=== PATIENT | male | born 1970 | race Two or more races ===

== ENCOUNTER 2017-03-23 17:30 | Inpatient (IN) | payer OTHER ==
[~2017-03-23] VITALS: Ht 175.3 cm; Wt 81.6 kg
[2017-03-23] MEDS ORDERED: Cefepime HCl 2 GM in D5W 55 ML IVPB ONE (18:00)
[2017-03-23] MEDS ORDERED: Vancomycin 1.5gm/D5W 250ml 250 ML IVPB ONE (18:00)
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
[2017-03-23] MEDS ORDERED: Cefepime 2gm ONE (18:17)
[2017-03-23 18:30] LABS: BASOPHILS % (AUTO) 0.7 % (0.0-2.0); EOSINOPHILS % (AUTO) 1.6 % (0.0-3.0); MEAN CORPUSCULAR HEMOGLOBIN 29.9 PG (27.0-31.0); MEAN CORPUSCULAR HGB CONC 33.6 G/DL (32.0-36.0); MEAN CORPUSCULAR VOLUME 89 FL (80-99); MEAN PLATELET VOLUME 8.2 FL (6.5-10.1); NEUTROPHILS % (AUTO) 62.7 % (45.0-75.0); PLATELET COUNT 195 K/UL (150-450); RED BLOOD COUNT 3.41 M/UL (4.70-6.10); RED CELL DISTRIBUTION WIDTH 13.1 % (11.6-14.8); WHITE BLOOD COUNT 6.3 K/UL (4.8-10.8)
[2017-03-23 18:40] LABS: ANION GAP 12 mmol/L (5-15); CARBON DIOXIDE 24 MMOL/L (21-32); CHLORIDE 102 MMOL/L (98-107); CREATININE 1.1 MG/DL (0.55-1.30); GLOMERULAR FILTRATION RATE > 60 mL/min (>60); POTASSIUM 4.2 MMOL/L (3.5-5.1); SODIUM 138 MMOL/L (136-145)
[2017-03-23 18:45] LABS: ALANINE AMINOTRANSFERASE 24 U/L (12-78); ASPARTATE AMINO TRANSFERASE 19 U/L (15-37); TOTAL PROTEIN 7.8 G/DL (6.4-8.2)
[2017-03-23 19:56] LABS: APPEARANCE,URINE CLEAR; KETONES,URINE NEGATIVE (NEGATIVE); LEUKOCYTE ESTERASE ,URINE 1+ (NEGATIVE); NITRITE,URINE NEGATIVE (NEGATIVE); PH,URINE 6.5 (4.5-8.0); PROTEIN,URINE NEGATIVE (NEGATIVE); UROBILINOGEN,URINE NORMAL MG/DL (0.0-1.0)
[2017-03-23 20:18] LABS: RBC,URINE 0-2 /HPF (0 - 0)
[2017-03-23 20:19] LABS: AMORPHOUS SEDIMENT,UR MODERATE /LPF; BACTERIA,URINE FEW /HPF
[2017-03-23] MEDS ORDERED: Cefepime HCl 2 GM in D5W 55 ML IVPB SCH (23:00)
[2017-03-23] MEDS ORDERED: Morphine Sulfate 2mg/ml Inj IVP PRN (23:00)
[2017-03-23 23:37] VITALS: BP 145/86
[2017-03-24] MEDS ORDERED: Cefepime 2gm ONE (03:46)
[2017-03-24 03:53] VITALS: BP 117/67
[2017-03-24] MEDS: Cefepime HCl 2 GM in D5W 55 ML IVPB SCH ×2 (04:29→19:37)
[2017-03-24] MEDS: Vancomycin 1250mg/D5W 250ml IVPB SCH ×2 (05:52→19:42)
[2017-03-24] MEDS: Norco 5mg/325mg tab ORAL PRN (06:01)
[2017-03-24 07:57] LABS: ALANINE AMINOTRANSFERASE 18 U/L (12-78); ALBUMIN/GLOBULIN RATIO 0.9 (1.0-2.7); ANION GAP 7 mmol/L (5-15); ASPARTATE AMINO TRANSFERASE 14 U/L (15-37); CALCIUM 8.9 MG/DL (8.5-10.1); CARBON DIOXIDE 27 MMOL/L (21-32); CHLORIDE 105 MMOL/L (98-107); CRP QUANT 0.5 mg/dL (0.00-0.90); GLOMERULAR FILTRATION RATE > 60 mL/min (>60); POTASSIUM 4.1 MMOL/L (3.5-5.1); SODIUM 139 MMOL/L (136-145); TOTAL PROTEIN 6.8 G/DL (6.4-8.2)
[2017-03-24 07:59] LABS: BASOPHILS % (AUTO) 0.7 % (0.0-2.0); EOSINOPHILS % (AUTO) 2.1 % (0.0-3.0); LYMPHOCYTES % (AUTO) 26.3 % (20.0-45.0); MEAN CORPUSCULAR HEMOGLOBIN 29.3 PG (27.0-31.0); MEAN CORPUSCULAR HGB CONC 32.8 G/DL (32.0-36.0); MEAN CORPUSCULAR VOLUME 89 FL (80-99); MEAN PLATELET VOLUME 8.2 FL (6.5-10.1); MONOCYTES % (AUTO) 6.9 % (1.0-10.0); PLATELET COUNT 219 K/UL (150-450); RED BLOOD COUNT 4.08 M/UL (4.70-6.10); RED CELL DISTRIBUTION WIDTH 13.2 % (11.6-14.8); WHITE BLOOD COUNT 6.6 K/UL (4.8-10.8)
[2017-03-24 08:15] VITALS: BP 131/88
[2017-03-24] MEDS ORDERED: Cefepime HCl 2 GM in D5W 55 ML IVPB SCH (09:00)
--- NOTE | 2017-03-24 10:14 | Diagnostic Imaging Report ---
Indication: PAIN, infection Technique: 2 views of the right tibia and fibula Comparison: none Findings: Medullary karma is seen extending through the tibia, reducing a well aligned fracture of the mid to distal diaphysis. Fracture line persists. There is also a fracture of the distal fibular diaphysis, which is displaced medially by just under one bone width. Skin prateek are seen the lateral aspect of the ankle and medial distal leg. The subcutaneous fat appears edematous. Impression: Fractures of the tibia and fibula, as described, with evidence of surgical reduction of the tibial fracture. Acuity indeterminate; uncertain as to whether the fractures are the original surgically repaired fractures or represent new fractures after surgery. Correlate with clinical history and compared to a prior outside images and may be available Edematous subcutaneous fat This agrees with the preliminary interpretation provided overnight by [facility] teleradiology service.
[2017-03-24] MEDS ORDERED: NS 500ML ONE (10:40)
[2017-03-24] MEDS ORDERED: Tubing IV Secondary IV ONE (10:40)
[2017-03-24 12:15] VITALS: BP 132/76
[2017-03-24 16:08] VITALS: BP 127/69
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
[2017-03-24 20:00] VITALS: BP 120/69
[2017-03-25] VITALS: BP 118/68
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
[2017-03-25 04:00] VITALS: BP 121/72
[2017-03-25] MEDS: Cefepime HCl 2 GM in D5W 55 ML IVPB SCH ×2 (05:03→17:51)
[2017-03-25] MEDS: Vancomycin 1250mg/D5W 250ml IVPB SCH (06:45)
[2017-03-25 08:00] VITALS: BP 126/76
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
[2017-03-25] MEDS: Morphine Sulfate 2mg/ml Inj IVP PRN ×2 (08:50→17:51)
[2017-03-25 12:00] VITALS: BP 143/79
--- NOTE | 2017-03-25 12:41 | Infectious Diseases Prog Note ---
"Assessment/Plan Assessment/Plan antibiotics : vancomycin iv, cefepime A 1. right leg cellulitis | wound infection with staph aureus 2. right tibia | fibula fracture s/p ORIF P 1. continue vancomycin iv, cefepime 2. will follow up cultures, CT scan Subjective Constitutional: Denies: fever, chills Respiratory: Denies: shortness of breath, dry cough Gastrointestinal/Abdominal: Denies: nausea, vomiting, diarrhea Musculoskeletal: Reports: pain Allergies: Coded Allergies: No Known Allergies (Unverified , 03/23/17) Objective Vital Signs Last 24 Hour Vital Signs Date Time Temp Pulse Resp B/P (MAP) Pulse Ox O2 Delivery O2 Flow Rate FiO2 03/25/17 08:00 97.0 72 20 126/76 96 03/25/17 04:00 98.2 68 18 121/72 99 Room Air 03/25/17 00:00 98.4 71 18 118/68 99 Room Air 03/24/17 20:00 99.6 73 18 120/69 98 Room Air 03/24/17 16:20 Room Air 03/24/17 16:08 97.3 78 22 127/69 97 Room Air Height (Feet): 5 Height (Inches): 9.00 Weight (Pounds): 180 Respiratory/Chest: lungs clear Cardiovascular: normal rate, regular rhythm, no gallop/murmur Abdomen: soft, non tender Extremities: no edema, other - right leg necrotic areas, erythema, swelling Microbiology Date/Time Source Procedure Growth Status 03/23/17 18:05 Blood Blood Culture - Preliminary NO GROWTH AFTER 24 HOURS Resulted 03/23/17 17:10 Blood Blood Culture - Preliminary NO GROWTH AFTER 24 HOURS Resulted 03/24/17 07:00 Hip Right Gram Stain - Final Resulted 03/24/17 07:00 Wound Culture - Preliminary Staphylococcus Aureus Resulted Laboratory Tests Test 03/25/17 06:15 Vancomycin Level Trough 10.3 ug/mL (5.0-12.0) JOEY BALTAZAR Mar 25, 2017 12:41"
[2017-03-25] MEDS: Vancomycin 1gm/D5W 275ml IVPB SCH ×4 (15:02→21:36)
[2017-03-25 16:15] VITALS: BP 126/77
--- NOTE | 2017-03-25 16:22 | Diagnostic Imaging Report ---
Indication: Infection, cellulitis, prior surgery Technique: No IV contrast, per referring physician request Spiral acquisitions obtained through the right tibia and fibula Multiplanar reconstructions were generated. Total dose length product 340 mGycm. CTDIvol(s) 5 mGy. Radiation dose was minimized using automated exposure control Comparison: Plain radiographs 03/24/2017 Findings: Surgical skin prateek are seen in the posterior dorsal lateral foot and lateral right ankle. Some of these are deep to the skin surface. There are nonspecific appearing polygonal high attenuation foci as well which measure approximately 5 mm in diameter. There is considerable infiltration of the subcutaneous fat in this region. There is also diffuse but less extensive edema of the subcutaneous fat of the leg. No definite discrete fluid collection demonstrated, but this is impossible to confidently excluded the absence of IV contrast. There is a medullary karma reducing a midshaft tibial fracture. This appears well aligned and the hardware appears intact. No osteolytic lesions are demonstrated. Hardware appears well aligned. There is a multipartite fracture of the mid to distal fibula. This has a central fragment and 2 distal fragments. The proximal fracture is minimally angulated, overrides by a few millimeters and is displaced anteriorly 5-7 mm. The distal fracture demonstrates only minimal if any angulation, is anteriorly displaced by about 5 mm. Impression: Postoperative changes, as described, status post ORIF of midshaft tibial fracture. Associated nonoperated fibular fracture, as described Extensive soft tissue edema, especially of the anterolateral ankle and hindfoot region. Given stated clinical history, most likely represent cellulitis. No definite underlying fluid collection. However, this is impossible to confidently exclude in the absence of IV contrast, and either repeat imaging with contrast or ultrasound should be considered. Multiple prateek are demonstrated in the region of the anterolateral ankle and hindfoot. Several these are deep to the skin surface. There are also ligament high attenuation foci in the same area, significance/etiology of which is uncertain. The CT scanner at [facility] is accredited by the [employer] and the scans are performed using protocols designed to limit radiation exposure to as low as reasonably achievable to attain images of sufficient resolution adequate for diagnostic evaluation.
--- NOTE | 2017-03-25 17:09 | Consultation ---
Consult Note Consult Note cx +staph- ID involved. CT done- no obvious signs of discrete fluid collection representing abscess Would recommend Abx regimen per ID. No need for sx at this time. per Ortho, ok for d/c once on abx regimen per ID. pt should f/u with outpt work comp CARLOS GAXIOLA Mar 25, 2017 17:09
[2017-03-25 20:00] VITALS: BP 123/79
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
[2017-03-26] VITALS (7 sets, daily range): BP systolic 115–138; BP diastolic 39–80
[2017-03-26] MEDS: Cefepime HCl 2 GM in D5W 55 ML IVPB SCH ×2 (05:19→17:11)
[2017-03-26] MEDS: Vancomycin 1gm/D5W 275ml IVPB SCH ×4 (06:00→14:29)
--- NOTE | 2017-03-26 11:18 | Infectious Diseases Prog Note ---
"Assessment/Plan Assessment/Plan antibiotics : vancomycin iv, cefepime A 1. right leg cellulitis | wound infection with staph aureus gram negative rods 2. right tibia | fibula fracture s/p ORIF P 1. continue vancomycin iv, cefepime 2. will follow up cultures Subjective Constitutional: Denies: fever, chills Respiratory: Denies: shortness of breath, dry cough Gastrointestinal/Abdominal: Denies: nausea, vomiting, diarrhea Musculoskeletal: Reports: pain Allergies: Coded Allergies: No Known Allergies (Unverified , 03/23/17) Objective Vital Signs Last 24 Hour Vital Signs Date Time Temp Pulse Resp B/P (MAP) Pulse Ox O2 Delivery O2 Flow Rate FiO2 03/26/17 08:00 96.3 76 18 138/80 98 Room Air 03/26/17 04:00 98.2 59 18 122/77 99 03/26/17 04:00 Room Air 03/26/17 00:00 97.5 71 21 117/39 98 03/25/17 20:00 97.3 80 21 123/79 100 03/25/17 16:15 98.2 69 22 126/77 99 Room Air 03/25/17 12:00 97.3 73 20 143/79 99 Height (Feet): 5 Height (Inches): 9.00 Weight (Pounds): 180 Respiratory/Chest: lungs clear Cardiovascular: normal rate, regular rhythm, no gallop/murmur Abdomen: soft, non tender Extremities: no edema, other - right leg in dressings Microbiology Date/Time Source Procedure Growth Status 03/23/17 18:05 Blood Blood Culture - Preliminary NO GROWTH AFTER 48 HOURS Resulted 03/23/17 17:10 Blood Blood Culture - Preliminary NO GROWTH AFTER 48 HOURS Resulted 03/24/17 07:00 Hip Right Gram Stain - Final Resulted 03/24/17 07:00 Wound Culture - Preliminary Staphylococcus Aureus - Mrsa Gram Negative Bacillus 2 Resulted JOEY BALTAZAR Mar 26, 2017 11:18"
[2017-03-26] MEDS: Morphine Sulfate 2mg/ml Inj IVP PRN (11:31)
--- NOTE | 2017-03-26 16:23 | Cardiology Report ---
APPROVED REPORT EKG Measurement Heart [id number] Normal sinus rhythm Minimal voltage criteria for LVH, may be normal variant RBBB Borderline ECG
--- NOTE | 2017-03-26 19:15 | Progress Note ---
DATE: 03/26/2017 INTERNAL MEDICINE PROGRESS NOTE SUBJECTIVE: The patient is anxious to go home. Right leg discomfort has decreased. Cultures are pending, but preliminaries revealed gram-negative rods and methicillin-resistant Staphylococcus aureus. CT scan yesterday without contrast could not exclude abscess. Repeat study with contrast is pending. OBJECTIVE: VITAL SIGNS: Blood pressure 118/64, pulse 59, respirations 19, and afebrile. NECK: Supple. LUNGS: Clear. CARDIAC: Regular. ABDOMEN: Soft. EXTREMITIES: With decreased edema. Still with warmth and redness at surgical site. IMPRESSION: Polymicrobial cellulitis with possible soft tissue infection and abscess, status post tib-fib fracture with karma placement. PLAN: 1. Continue current antimicrobials. 2. Await final cultures. 3. CT scan without contrast is pending. 4. The patient and made aware of the risks of premature discharge without full diagnostic data regarding wound to help guide long-term management and avoid extensive surgical interventions in the future. Sanjay Gan M.D. DR: CRIS JOB#: [id number] CC:
[2017-03-26] MEDS: Vancomycin 1250mg/D5W 250ml 250 ML IVPB SCH (21:37)
[2017-03-26] MEDS: Norco 5mg/325mg tab ORAL PRN (21:52)
[2017-03-27] MEDS: Morphine Sulfate 2mg/ml Inj IVP PRN (01:56)
[2017-03-27 04:00] VITALS: BP 105/69
[2017-03-27] MEDS: Cefepime HCl 2 GM in D5W 55 ML IVPB SCH ×2 (05:55→17:46)
[2017-03-27 08:00] VITALS: BP 152/78
[2017-03-27] MEDS: Vancomycin 1250mg/D5W 250ml 250 ML IVPB SCH (09:25)
--- NOTE | 2017-03-27 10:04 | Diagnostic Imaging Report ---
Indication: Cellulitis and leg edema. s/p recent ORIF Technique: Helical transaxial imaging of the right leg obtained in a Siemens Sensation [address] scanner. Soft tissue and bone windows generated. Automatic Exposure Control was utilized. IV contrast administered. Total Dose length Product (DLP): [address] Dose Index Volume (CTDIvol): 0.15x2, 15.6 mGy Comparison: 03/25/17 Findings: Comparison to the one day earlier shows extensive subcutaneous edema without definite abscess. Study currently was done with contrast material. Again there is an intramedullary karma reducing a fracture of the shaft of the tibia with proximal distal locking screws. A fibular fracture also noted. Staple lines from recent surgery demonstrated. Hardware alignment and position appear unremarkable. Impression: No evidence of abscess. Other findings unchanged compared to prior study one day earlier The CT scanner at [facility] is accredited by the [employer] and the scans are performed using dose optimization techniques as appropriate to a performed exam including Automatic Exposure control.
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
[2017-03-27 12:00] VITALS: BP 158/73
[2017-03-27 16:00] VITALS: BP 154/102
[2017-03-27] MEDS ORDERED: BACTRIM DS TAB1 EAC1 ORAL (17:09)
[2017-03-27] MEDS ORDERED: CIPROFLOXACIN500 MG PO (17:10)
--- NOTE | 2017-03-28 01:00 | Discharge Summary ---
DATE OF ADMISSION: 03/23/2017 DATE OF DISCHARGE: 03/27/2017 HOSPITAL COURSE: The patient was admitted to the hospital with right lower extremity redness, drainage and swelling at the site of prior fracture and surgery. Cultures were obtained. He was placed on broad-spectrum antibiotics. Imaging studies revealed no abscess but there is soft tissue and skin infection with stability of the joint. There was some retained sutures noted as well. ID and Orthopedic consults were obtained. The patient grew out Pseudomonas and methicillin-resistant Staphylococcus aureus from the wound. Appropriate antibiotics were given orally at the time of discharge to continue for 2 additional weeks. The patient was to follow up with workmen's Comp physician and with plastic surgery in the future for removal of retained sutures if necessary. Sanjay Gan M.D. DR: ANAHI JOB#: [id number] CC:
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
== END 2017-03-27 18:02 | disposition home or self-care (01) | DRG 603 ==
LOC: EMR 19:39 → 4E 19:42 → EDBEDREQ 19:55 → 4E 03-25 06:08
DX: L03.115 Cellulitis of right lower limb (principal); B96.5 Pseudomonas (aeruginosa) (mallei) (pseudomallei) as the cause of diseases classified elsewhere; B95.62 Methicillin resistant Staphylococcus aureus infection as the cause of diseases classified elsewhere; S82.201E Unspecified fracture of shaft of right tibia, subsequent encounter for open fracture type I or II with routine healing; V69.9XXD Occupant (driver) (passenger) of heavy transport vehicle injured in unspecified traffic accident, subsequent encounter
CPT/HCPCS: 36415; 80053; 80202; 81003; 83605; 85025; 86140; 87040; 87070; 87181; 87205; 93005; 99285

== ENCOUNTER 2017-06-02 10:27 | Emergency (ER) | payer OTHER ==
[~2017-06-02] VITALS: Ht 175.3 cm; Wt 81.6 kg
[~2017-06-02 10:27] MED LIST: BACTRIM DS TAB1 EAC1 ORAL; CIPROFLOXACIN500 MG PO
[2017-06-02 10:48] VITALS: BP 136/94
[2017-06-02 11:15] VITALS: BP 136/94
[2017-06-02] MEDS ORDERED: Morphine Sulfate 4mg/ml Inj IVP ONE (11:15)
[2017-06-02] MEDS ORDERED: DiphenhydrAMINE 50mg/ml Inj IVP ONE (11:15)
--- NOTE | 2017-06-03 08:24 | Emergency Room Report ---
History of Present Illness General Chief Complaint: Wound Recheck/Suture Removal Source: Patient Present Illness HPI Patient presents for wound check Reports that he had sutures and prateek placed in January at an out of state facility Denies any new change Denies any fevers Denies any trauma Denies any new rash Denies any discharge or discomfort Allergies: Coded Allergies: No Known Allergies (Unverified , 03/23/17) Patient History Past Medical History: see triage record Pertinent Family History: none Reviewed Nursing Documentation: PMH: Agreed, PSxH: Agreed Nursing Documentation-PMH Past Medical History: No Stated History Review of Systems All Other Systems: negative except mentioned in HPI Physical Exam Vital Signs Date Time Temp Pulse Resp B/P (MAP) Pulse Ox O2 Delivery O2 Flow Rate FiO2 06/02/17 10:38 97.9 92 18 136/94 98 Room Air Sp02 EP Interpretation: reviewed, normal General Appearance: well appearing, no apparent distress Head: normocephalic, atraumatic ENT: normal pharynx Neck: full range of motion, supple Respiratory: lungs clear Cardiovascular #1: regular rate, rhythm Musculoskeletal: other - Appearance a previous pathology to the right lower extremity, however able to move both feet and flexion extension Neurologic: alert, oriented x3, responsive Skin: other - Does have previous pathology to the right lower extremity, several areas of what appear to be likely sutures protruding through the skin, several areas of what appear to be likely staple that have been indwelling and at this time covered with overlaying skin Lymphatic: no adenopathy Medical Decision Making Diagnostic Impression: Primary Impression: Encounter for wound re-check ER Course Patient has appropriate medical screening evaluation As the patient reports the sutures and interventions have been placed in January There is at this time no emergent pathology requiring emergent intervention Patient requires wound management and primary care followup I feel that any intervention would potentially cause more harm Patient is medically stable for close followup Last Vital Signs Date Time Temp Pulse Resp B/P (MAP) Pulse Ox O2 Delivery O2 Flow Rate FiO2 06/02/17 11:15 97.9 80 17 136/94 99 Room Air Status: unchanged Disposition: HOME, SELF-CARE Condition: Stable Referrals: NOT CHOSEN IPA/MD,REFERRING (PCP) Patient Instructions: Wound Check Additional Instructions: Please note that the wounds on your lower extremity are from January. This is considered a chronic finding. The sutures in the prateek that were in place from that time becoming indwelling. Emergency removal in this department has not been performed. This requires close followup with primary physician/wound care management. you will be provided appropriate followup clinics. You were also advised that the chief dietitian who requested referral to emergency room should also provide referral to appropriate specialty referral FRAN LEVINE D.O. Jun 03, 2017 08:24
== END 2017-06-02 11:45 | disposition home or self-care (01) ==
LOC: EMR 11:10
DX: Z48.02 Encounter for removal of sutures (principal)
CPT/HCPCS: 99282

== ENCOUNTER 2018-04-24 23:08 | Emergency (ER) | payer MEDICAID, OTHER ==
[~2018-04-24] VITALS: Ht 172.7 cm; Wt 68.0 kg
[2018-04-24] MEDS ORDERED: NKM (23:09)
[2018-04-24 23:19] VITALS: BP 130/85
--- NOTE | 2018-04-24 23:26 | Emergency Room Report ---
History of Present Illness General Chief Complaint: Chest Pain Source: Patient Present Illness HPI Is a 47-year-old male with no past medical history. He presents with chief complaint of chest pain. Onset was acute about an hour ago. He was sitting up watching TV when he felt sharp pain in his upper chest area. He was concerned called 911. There is no radiation. No fever chills but no diaphoresis. No arm pain. Pain was 8 out of 10. He called 911 and was given aspirin and nitroglycerin. No relief. No other complaint. Allergies: Coded Allergies: No Known Allergies (Unverified , 03/23/17) Patient History Past Medical History: see triage record, old chart reviewed Past Surgical History: other Pertinent Family History: none Social History: Denies: smoking Immunizations: other Reviewed Nursing Documentation: PMH: Agreed; PSxH: Agreed Nursing Documentation-PMH Past Medical History: No Stated History Review of Systems Eye: Denies: eye pain, blurred vision ENT: Denies: ear pain, nose congestion, throat swelling Respiratory: Denies: cough, shortness of breath Cardiovascular: Reports: chest pain; Denies: palpitations Gastrointestinal: Denies: abdominal pain, diarrhea, nausea, vomiting Musculoskeletal: Denies: back pain, joint pain Skin: Denies: rash Neurological: Denies: headache, numbness Endocrine: Denies: increased thirst, increased urine Hematologic/Lymphatic: Denies: easy bruising All Other Systems: negative except mentioned in HPI Physical Exam Vital Signs Date Time Temp Pulse Resp B/P (MAP) Pulse Ox O2 Delivery O2 Flow Rate FiO2 04/24/18 23:05 98.1 104 17 147/100 99 Room Air Sp02 EP Interpretation: reviewed, normal General Appearance: well appearing, no apparent distress, alert Head: normocephalic, atraumatic Eyes: bilateral eye PERRL, bilateral eye EOMI ENT: hearing grossly normal, normal pharynx Neck: full range of motion, supple, no meningismus Respiratory: chest non-tender, lungs clear, normal breath sounds Cardiovascular #1: regular rate, rhythm, no murmur Gastrointestinal: normal bowel sounds, non tender, no mass, no organomegaly, no bruit, non-distended Musculoskeletal: back normal, gait/station normal, normal range of motion, other - Right lower leg: He has scarring and edema from previous tib-fib fracture and surgery. mild erythema. no drainage Neurologic: alert, oriented x3 Psychiatric: mood/affect normal Skin: warm/dry Medical Decision Making Diagnostic Impression: Primary Impression: Chest pain Qualified Codes: R07.9 - Chest pain, unspecified Additional Impressions: Cocaine abuse Methamphetamine abuse Cellulitis of right lower extremity without foot ER Course Patient presents with atypical chest pain. EKG is normal and troponin negative. We'll repeat troponin. Heart score is negative. If negative can go home. Lab Results Impression labs unremarkable EKG Diagnostic Results Rate: normal Rhythm: NSR ST Segments: no acute changes Rhythm Strip Diag. Results Rhythm Strip Time: 23:25 EP Interpretation: yes Rate: 87 Rhythm: NSR, no PVC's, no ectopy Chest X-Ray Diagnostic Results Chest X-Ray Diagnostic Results : Chest X-Ray Ordered: Yes # of Views/Limited/Complete: 1 View Indication: Chest Pain EP Interpretation: Yes Interpretation: no consolidation, no effusion, no pneumothorax, no acute cardiopulmonary disease Impression: No acute disease Electronically Signed by: Eran Cui MD Last Vital Signs Date Time Temp Pulse Resp B/P (MAP) Pulse Ox O2 Delivery O2 Flow Rate FiO2 04/24/18 23:05 98.1 104 17 147/100 99 Room Air Status: improved Disposition: HOME, SELF-CARE Condition: Stable Scripts Clindamycin Hcl (CLINDAMYCIN HCL) 300 Mg Capsule 300 MG ORAL THREE TIMES A DAY, #21 CAP Prov: Eran Cui MD 04/25/18 Patient Instructions: Nonspecific Chest Pain Additional Instructions: Stop using drugs. Follow-up with your doctor in 7 days. Return if symptom worsen. Eran Cui MD Apr 24, 2018 23:26
[2018-04-24] MEDS ORDERED: Ketorolac 30mg Inj IV ONE (23:30)
[2018-04-24 23:37] LABS: BASOPHILS % (AUTO) 0.6 % (0.0-2.0); EOSINOPHILS % (AUTO) 0.3 % (0.0-3.0); HEMATOCRIT 37.8 % (42.0-52.0); HEMOGLOBIN 13.2 G/DL (14.2-18.0); LYMPHOCYTES % (AUTO) 21.7 % (20.0-45.0); MEAN CORPUSCULAR VOLUME 87 FL (80-99); MONOCYTES % (AUTO) 5.9 % (1.0-10.0); NEUTROPHILS % (AUTO) 71.5 % (45.0-75.0); PLATELET COUNT 236 K/UL (150-450); RED BLOOD COUNT 4.33 M/UL (4.70-6.10); RED CELL DISTRIBUTION WIDTH 11.4 % (11.6-14.8); WHITE BLOOD COUNT 7.6 K/UL (4.8-10.8)
[2018-04-24 23:41] LABS: APPEARANCE,URINE CLEAR; BILIRUBIN, URINE NEGATIVE (NEGATIVE); COLOR,URINE PALE YELLOW; GLUCOSE, URINE (UA) NEGATIVE (NEGATIVE); KETONES,URINE NEGATIVE (NEGATIVE); LEUKOCYTE ESTERASE ,URINE NEGATIVE (NEGATIVE); NITRITE,URINE NEGATIVE (NEGATIVE); PH,URINE 6.5 (4.5-8.0); UROBILINOGEN,URINE NORMAL MG/DL (0.0-1.0)
[2018-04-24 23:43] LABS: PROTEIN,URINE NEGATIVE (NEGATIVE)
[2018-04-24 23:46] LABS: ANION GAP 8 mmol/L (5-15); BLOOD UREA NITROGEN 9 mg/dL (7-18); CALCIUM 8.6 MG/DL (8.5-10.1); CARBON DIOXIDE 30 MMOL/L (21-32); CHLORIDE 102 MMOL/L (98-107); CREATININE 1.2 MG/DL (0.55-1.30); POTASSIUM 3.6 MMOL/L (3.5-5.1); SODIUM 140 MMOL/L (136-145)
[2018-04-25] LABS: ALANINE AMINOTRANSFERASE 30 U/L (12-78); ALBUMIN 3.1 G/DL (3.4-5.0); ALBUMIN/GLOBULIN RATIO 0.8 (1.0-2.7); ALKALINE PHOSPHATASE 181 U/L (46-116); ASPARTATE AMINO TRANSFERASE 17 U/L (15-37); BILIRUBIN,TOTAL 0.3 MG/DL (0.2-1.0); CREATINE KINASE 95 U/L (26-308)
[2018-04-25] MEDS ORDERED: CLINDAMYCIN HC300 MG ORAL (00:28)
[2018-04-25 01:11] VITALS: BP 115/83
== END 2018-04-25 01:34 | disposition home or self-care (01) ==
LOC: EDBD 23:08 → EMR 23:30
DX: R07.89 Other chest pain (principal); F14.10 Cocaine abuse, uncomplicated; F15.10 Other stimulant abuse, uncomplicated; L03.115 Cellulitis of right lower limb
CPT/HCPCS: 36415; 71045; 80053; 80307; 81003; 82550; 82553; 84484; 85025; 93005; 96374; 99284; J1885